=== PATIENT | female | born 1970 | race Caucasian/White ===

== ENCOUNTER → 2017-06-08 | Outpatient (CLI) | payer OTHER ==
[2017-06-12 10:56] LABS: HPV Genotype 16 Not Detected (NOTDET); HPV Genotype 18 Not Detected (NOTDET)
[2017-06-16 09:05] LABS: HPV High Risk Other Not Detected (NOTDET)
== END | disposition home or self-care (01) ==
LOC: LAB 11:13
PROVIDERS: Obstetrics & Gynecology
DX: Z01.419 Encounter for gynecological examination (general) (routine) without abnormal findings (principal)
CPT/HCPCS: 87624; G0123

== ENCOUNTER 2018-06-17 18:36 | Emergency (ER) | payer OTHER ==
[~2018-06-17] VITALS: Ht 177.8 cm; Wt 81.7 kg
[2018-06-17 19:14] LABS: BASOPHILS ABSOLUTE AUTO 0.05 K/mm3 (0.00-0.23); BASOPHILS PERCENT AUTO 1 % (0-2); EOSINOPHILS PERCENT AUTO 1 % (0-6); Hematocrit 42.5 % (33.0-51.0); IMMATURE GRAN ABSOLUTE AUTO 0.04 K/mm3 (0.00-0.10); IMMATURE GRAN PERCENT AUTO 0 % (0-1); LYMPHOCYTES ABSOLUTE AUTO 3.46 K/mm3 (0.84-5.20); LYMPHOCYTES PERCENT AUTO 34 % (21-46); MONOCYTES ABSOLUTE AUTO 0.52 K/mm3 (0.16-1.47); MONOCYTES PERCENT AUTO 5 % (4-13); Mean Corpuscular HGB 30.3 pg (26.0-34.0); Mean Corpuscular HGB Conc 32.9 g/dL (31.5-36.5); Mean Corpuscular Volume 92 fL (80-100); Mean Platelet Volume 10.3 fL (9.1-12.4); NEUTROPHILS ABSOLUTE AUTO 6.07 K/mm3 (1.96-9.15); NEUTROPHILS PERCENT AUTO 59 % (41-73); Platelet Count 342 K/mm3 (150-400); RDW Coefficient Variation 12.6 % (11.7-14.2); RDW Standard Deviation 42.5 fL (35.1-46.3); Red Blood Cell Count 4.62 M/mm3 (3.80-5.20); White Blood Cell Count 10.24 K/mm3 (4.00-11.30)
[2018-06-17 19:32] LABS: Alanine Aminotransfer (ALT/SGP 34 U/L (12-78); Albumin, Blood 4.1 g/dL (3.4-5.0); Alk Phos 89 U/L (50-136); Anion Gap 9 mmol/L (6-16); Aspartate Aminotrans (AST/SGOT 18 U/L (12-37); Bilirubin, Total 0.5 mg/dL (0.1-1.0); Blood Urea Nitrogen 11 mg/dL (8-24); Bun/Creatinine Ratio 16.6 (12.0-20.0); CO2, Blood 26 mmol/L (21-32); Calcium, Blood 9.1 mg/dL (8.5-10.1); Chloride, Blood 103 mmol/L (98-108); Creatinine, Blood 0.66 mg/dL (0.40-1.00); Glomerular Filtration Rate >60 (60-); Glucose, Blood 118 mg/dL (70-99); Potassium, Blood 3.5 mmol/L (3.5-5.5); Sodium, Blood 138 mmol/L (136-145); Total Protein, Blood 8.1 g/dL (6.4-8.2)
[2018-06-17 21:11] LABS: Source, Urine Clean Catch
[2018-06-17 21:17] LABS: Appearance, Urine Hazy (Clear); Bilirubin, Urine Neg (Neg); Blood, Urine 1+ (Neg); Color, Urine Yellow (P-Yellow); Glucose Qualitative, Urine Neg (Neg); Ketones, Urine 3+ (Neg); Leukocyte Esterase, Urine Neg (Neg); Nitrite, Urine Neg (Neg); Protein, Urine 1+ (Neg); Urobilinogen, Urine NORM (Normal); pH, Urine 6.5 (5.0-8.0)
[2018-06-17 21:28] LABS: Bacteria Many /hpf; Squamous Epithelial Cells Mod /hpf (Few); White Blood Cells, Urine 0-2 /hpf (0-5)
[2018-06-17 21:29] LABS: Amorphous Light (0-Heavy)
[2018-06-17] MEDS ORDERED: Roxicodone5 MG PO (23:10)
== END 2018-06-17 23:33 | disposition home or self-care (01) ==
LOC: ER 18:36
PROVIDERS: Physician Assistant
DX: D27.1 Benign neoplasm of left ovary (principal); D27.0 Benign neoplasm of right ovary; R91.1 Solitary pulmonary nodule
CPT/HCPCS: 36415; 74177; 76830; 76856; 80053; 81001; 81025; 83690; 85025; 87086; 96361; 96374-59; 99284-25; J1885; J2405; J7030; Q9967

== ENCOUNTER 2018-06-20 10:01 | Day surgery (SDC) | payer OTHER ==
[~2018-06-20 10:01] MED LIST: Roxicodone5 MG PO
--- NOTE | 2018-06-20 11:00 | NUR ---
Ambulatory in Day Surgery History, Chart, Medications and Allergies reviewed before start of procedure.Patient States Post-Procedure ride home has been arranged. WAS CHEWING GUM FOR 1 HOUR HAD PATIENT SPIT OUT GUM AT 1050
--- NOTE | 2018-06-20 18:24 | NUR ---
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 EATING WITHOUT DIFFICULTY, DRINKING FLUIDS WITHOUT DIFFICULTY."
--- NOTE | 2018-06-20 18:49 | NUR ---
1844- PT TAKING PO WITHOUT NAUSEA. NO VAGINAL OR INCISIONAL BLEEDING. ABD SOFT. DR. RENDON NOTIFIED OF PTS PULSE OF 90-110/MINUTE. IV DC'D WITH CATH INTACT. PT VERBALIZES A GOOD UNDERSTANDING OF DISCHARGE INSTRUCTIONS.
== END 2018-06-20 22:48 | disposition home or self-care (01) ==
LOC: ORSCMMR 10:01
PROVIDERS: Obstetrics & Gynecology
PROC: 0UT04ZZ Resection of Right Ovary, Percutaneous Endoscopic Approach (ICD-10-PCS; principal; 2018-06-20 14:30)
PROC: 0UB14ZZ Excision of Left Ovary, Percutaneous Endoscopic Approach (ICD-10-PCS; principal; 2018-06-20 14:30)
PROC: 0UT74ZZ Resection of Bilateral Fallopian Tubes, Percutaneous Endoscopic Approach (ICD-10-PCS; principal; 2018-06-20 14:30)
DX: D27.0 Benign neoplasm of right ovary (principal); N83.53 Torsion of ovary, ovarian pedicle and fallopian tube; D27.1 Benign neoplasm of left ovary; Z79.899 Other long term (current) drug therapy; Z79.3 Long term (current) use of hormonal contraceptives
CPT/HCPCS: 88302; 88305; J1100; J1885; J2250; J2370; J2405; J2710; J3010; J7120

== ENCOUNTER → 2018-12-04 | Outpatient (CLI) | payer OTHER ==
[~2018-12-04] MED LIST changes: +Augmentin 875-1 EACH PO; +BIRTH CONTROL PO; +SERT25 PO
[2018-12-06 16:06] LABS: HPV 16 Negative (Negative); HPV 18 Negative (Negative); HPV OTHER HR TYPES Negative (Negative)
== END | disposition home or self-care (01) ==
LOC: LAB SHORT 15:27 → LAB 15:27
PROVIDERS: Obstetrics & Gynecology
DX: Z01.419 Encounter for gynecological examination (general) (routine) without abnormal findings (principal)
CPT/HCPCS: 87624; G0123

== ENCOUNTER 2019-01-29 20:24 | Emergency (ER) | payer OTHER ==
[~2019-01-29] VITALS: Ht 177.8 cm; Wt 83.9 kg
[~2019-01-29 20:24] MED LIST changes: -Augmentin 875-1 EACH PO; -BIRTH CONTROL PO; -SERT25 PO
[2019-01-29] MEDS ORDERED: SERT25 PO (21:26)
[2019-01-29] MEDS ORDERED: BIRTH CONTROL PO (21:26)
[2019-01-29] MEDS ORDERED: Augmentin 875-1 EACH PO (22:32)
== END 2019-01-29 22:36 | disposition home or self-care (01) ==
LOC: ER 20:24
DX: S61.253A Open bite of left middle finger without damage to nail, initial encounter (principal); W54.0XXA Bitten by dog, initial encounter; Z79.899 Other long term (current) drug therapy
CPT/HCPCS: 12001; 90471; 90714; 99282-25

== ENCOUNTER → 2019-04-29 | Outpatient (CLI) | payer OTHER ==
[~2019-04-29] MED LIST changes: +Augmentin 875-1 EACH PO; +BIRTH CONTROL PO; +SERT25 PO
[2019-05-05 15:07] LABS: HPV 16 Negative (Negative); HPV 18 Negative (Negative); HPV OTHER HR TYPES Negative (Negative)
== END | disposition home or self-care (01) ==
LOC: OLS 09:14 → LAB SHORT 09:14
PROVIDERS: Registered Nurse
DX: Z12.4 Encounter for screening for malignant neoplasm of cervix (principal)
CPT/HCPCS: 87624; G0123

== ENCOUNTER → 2020-07-29 | Outpatient (CLI) | payer OTHER | LOC: LAB SHORT 13:00 → LAB 13:00 | DX: J02.9 Acute pharyngitis, unspecified (principal) | CPT/HCPCS: 87081; 87147 ==

== ENCOUNTER 2023-03-09 06:16 | Day surgery (SDC) | payer OTHER ==
[~2023-03-09] VITALS: Ht 177.8 cm; Wt 89.9 kg
[2023-03-09] MEDS ORDERED: BUPR150ER (06:27)
[2023-03-09] MEDS ORDERED: CYCL10 (06:27)
[2023-03-09] MEDS ORDERED: MELO7.5 (06:28)
[2023-03-09] MEDS ORDERED: Vitamin B-12100 MCG (06:28)
[2023-03-09] MEDS ORDERED: Phentermine HCl15 MG (06:28)
[2023-03-09 08:24] VITALS: BP 115/80
== END 2023-03-09 08:31 | disposition home or self-care (01) ==
LOC: ORSCSDS 06:16 → ORSCMMR 07:30 → ORSCSDS 08:31 → ORD 11:00 → ORSCMMR 11:00
PROVIDERS: Surgery
PROC: 0DBL8ZX Excision of Transverse Colon, Via Natural or Artificial Opening Endoscopic, Diagnostic (ICD-10-PCS; principal; 2023-03-09 07:30)
DX: Z12.11 Encounter for screening for malignant neoplasm of colon (principal); K63.5 Polyp of colon; K64.1 Second degree hemorrhoids; K64.4 Residual hemorrhoidal skin tags; F32.A Depression, unspecified; E66.9 Obesity, unspecified; Z68.29 Body mass index [BMI] 29.0-29.9, adult; Z79.899 Other long term (current) drug therapy
CPT/HCPCS: 88305; J2704; J7120